=== PATIENT | male | born 1965 | race Caucasian/White ===

== ENCOUNTER 2018-11-28 15:33 | Inpatient (IN) | payer BC, OTHER ==
[~2018-11-28 15:33] MED LIST: ISOVUE-370 76%-LOCM 1 ML ONE
[2018-11-28 16:11] LABS: #Eosinphils 0.3 thou/uL (0.0-0.7); #Lymphocytes 2.4 thou/uL (1.20-3.40); #Monocytes 1.4 thou/uL (0.11-0.59); #Neutrophils 11.4 thou/uL (1.40-6.50); %Basophils 0.2 % (0.0-1.0); %Eosinophils 1.8 % (0.0-10.0); %Lymphocytes 15.2 % (21.0-51.0); %Monocytes 8.9 % (0.0-10.0); %Neutrophils 73.9 % (42.0-75.0); Hemoglobin 17.4 g/dL (14.0-18.0); Mean Corpuscular Hemoglobin 30.3 pg (27.0-31.0); Mean Corpuscular Volume 91.7 fL (78.0-98.0); Mean Platelet Volume 7.7 fL (7.4-10.4); Platelet Count 298 thou/uL (130-400); RBC Distribution Width 12.3 % (11.5-14.5); Red Blood Cell (RBC) Count 5.75 mill/uL (4.70-6.10); White Blood Cell (WBC) Count 15.4 thou/uL (4.8-10.8)
[2018-11-28 16:31] LABS: ALT (SGPT) 17 U/L (8-55); AST (SGOT) 16 U/L (5-34); Alkaline Phosphatase 77 U/L (40-150); Anion Gap 18 mmol/L (10-20); BUN (Urea Nitrogen) 11 mg/dL (8.4-25.7); Bilirubin, Total 0.8 mg/dL (0.2-1.2); Calc. Creatinine Clearance 0 mL/min (70-130); Calcium 9.7 mg/dL (7.8-10.44); Carbon Dioxide 23 mmol/L (22-29); Chloride 94 mmol/L (98-107); Estimated GFR-MDRD 74; Globulin 2.9 g/dL (2.4-3.5); Glucose 131 mg/dL (70-105); Potassium 3.9 mmol/L (3.5-5.1); Protein, Total 6.9 g/dL (6.0-8.3); Sodium 131 mmol/L (136-145)
[2018-11-28 16:40] LABS: Bilirubin Moderate (Negative); Blood, Urine Trace (Negative); Clarity CLOUDY (Clear); Glucose, Urine (Dipstick) Negative (Negative); Leukocyte Moderate (Negative); Nitrite Negative (Negative); Protein, Urine (Dipstick) 30 mg/dL (Neg-Trace); pH, Urine 5.5 (5.0-9.0)
[2018-11-28 16:46] LABS: Bacteria/HPF None Seen HPF (None Seen); Pathc Cast-AUWi Flag 2.32 (0-2.49); RBC/HPF 0-3 HPF (0-3); Squamous Epithelial None Seen HPF (0-3)
--- NOTE | 2018-11-28 16:51 | RAD ---
PORTABLE CHEST: 11/28/2018 PROVIDED CLINICAL HISTORY: Abdominal pain. FINDINGS: The cardiac and mediastinal silhouette is within normal limits. The lungs are hypoinflated but gross ly clear. No pleural fluid or pneumothorax apparent. IMPRESSION: No evidence for an acute cardiopulmonary process. POS: OFF
[2018-11-28 16:54] LABS: Hyaline Casts/LPF 4-6 HYALINE CAST LPF (0-3 Hyaline)
[2018-11-28] MEDS ORDERED: cefTRIAXone\\ROCEPHIN 2 GM VIAL ONE (17:23)
[2018-11-28] MEDS ORDERED: Morphine 4 MG/ML VIAL ONE ×2 (17:23→20:00)
[2018-11-28] MEDS ORDERED: Vancomycin HCl 1.5 GM in Sodium Chloride 0.9% 250 ML 300 ML IVPB SCH (17:45)
[2018-11-28] MEDS ORDERED: Benzocaine 20% Spray 60 ML CAN ONE ×2 (18:35→19:32)
[2018-11-28] MEDS ORDERED: Ondansetron PF 4 MG/2 ML Vial IVP PRN (19:15)
[2018-11-28] MEDS ORDERED: Dextrose 5% in Water 1,000 ML IV PRN (19:15)
[2018-11-28] MEDS ORDERED: Dextrose 50% Abboject 50 ML SYRINGE SLOW IVP PRN (19:15)
[2018-11-28] MEDS ORDERED: Morphine 4 MG/ML VIAL SLOW IVP PRN (19:15)
--- NOTE | 2018-11-28 19:22 | CT ---
CT ABDOMEN WITH CONTRAST CT PELVIS WITH CONTRAST: Date: 11/28/18 HISTORY: Diverticulitis workup. Abdominal pain, worsening. COMPARISON: None. FINDINGS: ABDOMEN CT: Subsegmental atelectasis in both lower lobes, as well as the lingula. Heart size is within normal barr its. No pericardial effusion. The descending thoracic aorta and abdominal aorta have a normal caliber . No periaortic fat stranding. There is a small amount of perihepatic fluid. The liver, spleen, and pancreas have appropriate attenu ation and enhancement. Gallbladder is unremarkable. There is prominence of both adrenal glands with a ssociated masses measuring 2.5 x 2.4 on the left and 2.6 x 2.1 on the right. Neither lesion has an at tenuation coefficient compatible with a benign adenoma. There is symmetric enhancement of the kidneys . Bilaterally, no obstructive uropathy. No gastrohepatic, retrocrural, or periportal lymphadenopathy. There is free fluid in the abdomen. There is stranding of the abdominal mesentery. The gastric mucosa is unremarkable. The duodenum and proximal small bowel loops are also unremarkable. The mid to dista l small bowel loops are moderately distended, and fluid-filled. There is mild bowel wall thickening. The ileocecal junction is identified and appears to be unremarkable. There is distention of the dista l ileum. There is a normal caliber appendix. There is diffuse dilatation of the entire colon, down to the level of the rectum. There is bowel wall thickening involving the distal descending colon, proximal and mid sigmoid colon. There appears to b e an abrupt caliber change at the level of the mid to distal sigmoid colon. The possibility of an kari lecore lesion in this region is raised. The distal sigmoid colon and rectum also have some bowel wall thickening. No evidence of adjacent free air or definite free fluid. There is mild increased vascula rity in this region. There is a hypodensity in the adjacent mesentery, measuring 1.9 x 1.8 cm. The po ssibility of a mesenteric lymph node cannot be completely excluded. CT PELVIS: No significant mass, free air, or free fluid. No evidence of lymphadenopathy along either external il iac chain. Presacral fat is maintained. No lytic or blastic lesions in the osseous structures. IMPRESSION: 1. High grade obstruction involving the colon, as well as moderate to high grade obstruction involvi ng the small bowel. The source of this obstruction appears to be at the level of the mid sigmoid colo n where there appears to be an applecore lesion. Colonoscopy is recommended. General surgical consult ation is also recommended. 2. Indeterminate left and right adrenal lesions. Results of study discussed with Dr. Stoddard on 11/28/17 at 1735 hours. CODE CR. POS: PPP
[2018-11-28] MEDS ORDERED: Ondansetron PF 4 MG/2 ML Vial ONE (20:00)
--- NOTE | 2018-11-28 20:56 | RAD ---
PORTABLE CHEST: 11/28/18 INDICATION: NG tube placement. FINDINGS: Frontal view imaging of lower one half of the chest and upper abdomen reveals enteric catheter direct ion in the lateral aspect of the left upper abdomen. There are partially imaged distended bowel loops which correspond to obstruction documented on preceding CT exam. IMPRESSION: Enteric catheter traverses the lateral aspect of the left upper quadrant. POS: LIZZETH
[2018-11-28] MEDS ORDERED: Enoxaparin Sodium 40 MG/0.4 ML SYRINGE SC SCH (21:00)
[2018-11-28] MEDS ORDERED: hydrALAZINE 20 MG/ML VIAL ONE (21:15)
[2018-11-28] MEDS: hydrALAZINE 20 MG/ML VIAL SLOW IVP PRN (21:19)
[2018-11-28] MEDS ORDERED: Enoxaparin Sodium 40 MG/0.4 ML SYRINGE ONE (21:25)
[2018-11-28] MEDS: Sodium Chloride 0.9% 1,000 ML IV SCH (21:30)
[2018-11-28] MEDS ORDERED: Morphine 2 MG/ML SYRINGE ONE ×2 (22:09→23:32)
[2018-11-28] MEDS ORDERED: Acetaminophen 1,000 MG in Premix Bag 1 BAG IVPB SCH (23:15)
[2018-11-28] MEDS ORDERED: Labetalol HCl 100 MG/20 ML VIAL SLOW IVP SCH (23:15)
[2018-11-28] MEDS ORDERED: Morphine 2 MG/ML SYRINGE SLOW IVP PRN (23:25)
[2018-11-28] MEDS: Morphine 4 MG/ML VIAL SLOW IVP PRN (23:42)
[2018-11-29] MEDS ORDERED: Morphine 4 MG/ML VIAL ONE ×3 (03:37→09:02)
[2018-11-29] MEDS: Morphine 4 MG/ML VIAL SLOW IVP PRN ×3 (03:38→09:09)
[2018-11-29 04:57] LABS: Anion Gap 20 mmol/L (10-20); BUN (Urea Nitrogen) 14 mg/dL (8.4-25.7); Calc. Creatinine Clearance 0 mL/min (70-130); Calcium 8.5 mg/dL (7.8-10.44); Carbon Dioxide 16 mmol/L (22-29); Chloride 101 mmol/L (98-107); Estimated GFR-MDRD Greater than 90; Glucose 162 mg/dL (70-105); Potassium 3.7 mmol/L (3.5-5.1); Sodium 133 mmol/L (136-145)
[2018-11-29] MEDS ORDERED: Ondansetron PF 4 MG/2 ML Vial ONE ×2 (05:44→10:18)
[2018-11-29] MEDS: hydrALAZINE 20 MG/ML VIAL SLOW IVP PRN (05:47)
[2018-11-29] MEDS: Sodium Chloride 0.9% 1,000 ML IV SCH ×2 (05:50→20:56)
[2018-11-29 06:40] LABS: Band 16 % (5-11); Lymphocytes 12 % (21-51); MDiff Complete? YES; Mean Corpuscular HGB CONC 33.2 g/dL (32.0-36.0); Mean Corpuscular Hemoglobin 30.5 pg (27.0-31.0); Mean Corpuscular Volume 91.9 fL (78.0-98.0); Mean Platelet Volume 7.4 fL (7.4-10.4); Monocytes 16 % (0-10); Neutrophil 14 % (42-75); Platelet Count 260 thou/uL (130-400); Platelet Morphology Comment Appears Adequate; RBC Distribution Width 12.5 % (11.5-14.5); Reactive Lymphocytes 40 % (0-10); Red Blood Cell (RBC) Count 5.56 mill/uL (4.70-6.10); Vacuoles SLIGHT; White Blood Cell (WBC) Count 2.3 thou/uL (4.8-10.8)
[2018-11-29] MEDS ORDERED: Labetalol HCl 100 MG/20 ML VIAL SLOW IVP PRN (09:24)
[2018-11-29 10:01] VITALS: BMI 33.9
[2018-11-29] MEDS ORDERED: Dexamethasone 20 MG/5 ML VIAL ONE (10:18)
[2018-11-29] MEDS ORDERED: Ketorolac Tromethamine 30 MG/ML VIAL ONE (10:18)
[2018-11-29] MEDS ORDERED: PROPOFOL 200 MG/20 ML VIAL ONE (10:18)
[2018-11-29] MEDS ORDERED: Rocuronium Bromide 10 MG/ML (10ML VIAL) ONE (10:18)
[2018-11-29] MEDS ORDERED: Midazolam HCl 2 mg/2 ml Vial ONE (11:28)
[2018-11-29] MEDS ORDERED: Bupivacaine HCl 0.5%/Epinephrine 1:200,000/PF 30 ml Vial ONE (11:30)
--- NOTE | 2018-11-29 12:06 | HP ---
ADMISSION DIAGNOSIS: Abdominal pain with colon distention. HISTORY OF PRESENT ILLNESS: The patient is a 53-year-old white male. He gives a 3-week history of progressive abdominal pain. He has noted loose bowel movements recently. He saw his primary care physician for this last week, who felt he may have diverticulitis and placed him on oral antibiotics. He noted his abdomen became progressively more distended with severe pain and he presented to the emergency room last night on November 28. CT scan was obtained revealing findings consistent with a distal colon obstruction at the rectosigmoid junction. There was massive dilatation of the colon proximally. PAST MEDICAL HISTORY: Significant for hypertension. CURRENT MEDICATIONS: Metoprolol. ALLERGIES: NO KNOWN DRUG ALLERGIES. PERSONAL AND SOCIAL HISTORY: He smokes about one cigar per day. He drinks alcohol occasionally. He is with one son. REVIEW OF SYSTEMS: Otherwise unremarkable. FAMILY HISTORY: Noncontributory. PHYSICAL EXAMINATION: VITAL SIGNS: He is afebrile, but he is tachycardic with a heart rate between 120 and 130. Blood pressure is elevated at 180/100. GENERAL: He is a well-developed, moderately obese white male in obvious discomfort. He is alert and oriented x3, and family is present at bedside. HEAD, EYES, EARS, NOSE, AND THROAT: Unremarkable. NECK: Supple without mass or tenderness. LUNGS: Clear to auscultation throughout. CARDIAC: Regular rate and rhythm. ABDOMEN: Distended. There are hypoactive bowel sounds. RECTAL: Reveals no definite palpable mass. EXTREMITIES: Unremarkable. LABORATORY DATA: White blood cell count is elevated at 15, hemoglobin 17. Electrolytes are unremarkable. CEA is normal at 2.3. ASSESSMENT: The patient with distal colon obstruction and colon dilatation. PLAN: Urgent laparotomy with colon resection and colostomy. He will not be a candidate for reanastomosis secondary to distention of his colon. I have discussed this in detail with the patient's family. They understand and agreed to proceed with surgery at this time. Job ID: [id number]
[2018-11-29] MEDS ORDERED: ceFOXitin 1 GM VIAL ONE ×2 (12:24→14:31)
[2018-11-29] MEDS ORDERED: Promethazine HCl 25 MG/ML VIAL IM PRN ×3 (12:30→18:03)
[2018-11-29] MEDS ORDERED: Hydrocerin (Eucerin) Cream 120 gm Jar TOP PRN (12:30)
[2018-11-29] MEDS ORDERED: Naloxone HCl 0.4 mg/ml Vial IV PRN (12:30)
[2018-11-29] MEDS ORDERED: Bupivacaine 0.25% 10 ML VIAL EPIDURAL PRN (12:30)
[2018-11-29] MEDS ORDERED: Zolpidem Tartrate 5 MG TAB PO PRN (12:30)
[2018-11-29] MEDS ORDERED: Promethazine HCl 25 MG SUPP PR PRN (12:30)
[2018-11-29] MEDS ORDERED: Naloxone HCl 0.4 mg/ml Vial IVP PRN (12:30)
[2018-11-29] MEDS ORDERED: traMADol HCl 50 MG TAB PO PRN ×2 (12:30)
[2018-11-29] MEDS ORDERED: diphenhydrAMINE 50 MG/ML VIAL IM PRN (12:30)
[2018-11-29] MEDS ORDERED: HYDROcodone/Acetaminophen 5/325 mg Tablet PO PRN (12:30)
[2018-11-29] MEDS ORDERED: diphenhydrAMINE 25 MG CAP PO PRN (12:30)
[2018-11-29] MEDS ORDERED: diphenhydrAMINE 50 MG/ML VIAL IVP PRN (12:30)
[2018-11-29] MEDS ORDERED: Ondansetron PF 4 MG/2 ML Vial IVP PRN ×2 (12:30→18:03)
[2018-11-29] MEDS ORDERED: Albumin 5% 500 ML ONE ×2 (13:14→14:49)
[2018-11-29] MEDS ORDERED: Ondansetron HCl/PF 4 MG/2 ML Vial IVP PRN (16:06)
[2018-11-29] MEDS ORDERED: Meperidine HCl/PF 25 MG/ML VIAL SLOW IVP PRN (16:06)
[2018-11-29] MEDS ORDERED: Promethazine HCl 25 MG/ML VIAL SLOW IVP PRN (16:06)
[2018-11-29] MEDS ORDERED: Fentanyl/Bupivacaine 100 ML EPIDURAL ONE (16:11)
[2018-11-29] MEDS ORDERED: Fentanyl 100 MCG/2 ML VIAL ONE (16:43)
[2018-11-29] MEDS ORDERED: Ketorolac Tromethamine 30 MG/ML VIAL IVP SCH (18:00)
[2018-11-29 18:03] LABS: Hemoglobin 14.2 g/dL (14.0-18.0); Mean Corpuscular HGB CONC 31.8 g/dL (32.0-36.0); Mean Corpuscular Hemoglobin 30.4 pg (27.0-31.0); Mean Corpuscular Volume 95.5 fL (78.0-98.0); Mean Platelet Volume 7.6 fL (7.4-10.4); Platelet Count 244 thou/uL (130-400); RBC Distribution Width 12.6 % (11.5-14.5); Red Blood Cell (RBC) Count 4.69 mill/uL (4.70-6.10); White Blood Cell (WBC) Count 4.6 thou/uL (4.8-10.8)
[2018-11-29 18:15] LABS: Anion Gap 18 mmol/L (10-20); BUN (Urea Nitrogen) 17 mg/dL (8.4-25.7); Calc. Creatinine Clearance 132 mL/min (70-130); Carbon Dioxide 19 mmol/L (22-29); Chloride 102 mmol/L (98-107); Estimated GFR-MDRD 74; Glucose 159 mg/dL (70-105); Potassium 4.1 mmol/L (3.5-5.1); Sodium 135 mmol/L (136-145)
[2018-11-29 18:18] LABS: Band 34 % (5-11); Eosinophils 1 % (0-10); Lymphocytes 17 % (21-51); MDiff Complete? YES; Metamyelocyte 5 % (0-0); Monocytes 12 % (0-10); Myelocyte 1 % (0-0); Neutrophil 25 % (42-75); Platelet Morphology Comment Appears Adequate; RBC Morphology Normal; Reactive Lymphocytes 5 % (0-10)
[2018-11-29] MEDS ORDERED: Sodium Chloride 0.9% 1,000 ML IV SCH (18:30)
[2018-11-29] MEDS ORDERED: Acetaminophen 1,000 MG in Premix Bag 1 BAG IVPB SCH (18:45)
[2018-11-29] MEDS: Piperacillin/Tazobactam 3.375 GM in Sodium Chloride 0.9% 100 ML IVPB SCH (20:33)
[2018-11-29] MEDS: Famotidine/PF 20 mg/2ml Vial SLOW IVP SCH (20:34)
[2018-11-29] MEDS: Enoxaparin Sodium 40 MG/0.4 ML SYRINGE SC SCH (20:35)
[2018-11-29] MEDS: Famotidine 20 MG TAB PO SCH (21:33)
[2018-11-29] MEDS: Ketorolac Tromethamine 30 MG/ML VIAL IVP SCH (23:55)
[2018-11-29] MEDS: Acetaminophen 1,000 MG in Premix Bag 1 BAG IVPB SCH (23:55)
[2018-11-30] MEDS: Piperacillin/Tazobactam 3.375 GM in Sodium Chloride 0.9% 100 ML IVPB SCH ×4 (02:40→20:58)
[2018-11-30] MEDS: Fentanyl/Bupivacaine 100 ML EPIDURAL SCH ×2 (02:46→14:01)
[2018-11-30 04:29] LABS: Mean Corpuscular HGB CONC 31.9 g/dL (32.0-36.0); Mean Corpuscular Hemoglobin 30.3 pg (27.0-31.0); Mean Corpuscular Volume 94.9 fL (78.0-98.0); Mean Platelet Volume 7.5 fL (7.4-10.4); Platelet Count 222 thou/uL (130-400); RBC Distribution Width 12.5 % (11.5-14.5); White Blood Cell (WBC) Count 5.7 thou/uL (4.8-10.8)
[2018-11-30 04:46] LABS: Anion Gap 13 mmol/L (10-20); BUN (Urea Nitrogen) 17 mg/dL (8.4-25.7); Calc. Creatinine Clearance 163 mL/min (70-130); Calcium 8.2 mg/dL (7.8-10.44); Carbon Dioxide 21 mmol/L (22-29); Chloride 105 mmol/L (98-107); Estimated GFR-MDRD Greater than 90; Glucose 131 mg/dL (70-105); Potassium 3.9 mmol/L (3.5-5.1); Sodium 135 mmol/L (136-145)
[2018-11-30 04:53] LABS: Band 26 % (5-11); Hypochromia SLIGHT = 6-15 cells (100X) (0-5/hpf); Lymphocytes 18 % (21-51); MDiff Complete? YES; Metamyelocyte 4 % (0-0); Monocytes 28 % (0-10); Neutrophil 8 % (42-75); Platelet Morphology Comment Appears Adequate; Reactive Lymphocytes 16 % (0-10)
[2018-11-30] MEDS: Sodium Chloride 0.9% 1,000 ML IV SCH ×3 (05:30→18:02)
[2018-11-30] MEDS: Ketorolac Tromethamine 30 MG/ML VIAL IVP SCH ×4 (06:05→23:23)
[2018-11-30] MEDS: Acetaminophen 1,000 MG in Premix Bag 1 BAG IVPB SCH ×2 (06:05→11:30)
[2018-11-30] MEDS: Famotidine 20 MG TAB PO SCH ×2 (08:29→21:00)
[2018-11-30] MEDS: Famotidine/PF 20 mg/2ml Vial SLOW IVP SCH ×2 (08:30→21:00)
[2018-11-30] MEDS ORDERED: Enoxaparin Sodium 40 MG/0.4 ML SYRINGE SC SCH (09:00)
--- NOTE | 2018-11-30 09:36 | PRG ---
DATE OF SERVICE: 11/30/2018 SUBJECTIVE: Mr. Parsons is postoperative day #1 from an open Gianna procedure. He has been in the intensive care unit secondary to tachycardia and hypertension yesterday. He has been stable overnight. He has an epidural in place and notes that he generally feels pretty well with this in place. OBJECTIVE: GENERAL: He is alert and oriented x3 and has no complaints. He tells me he feels much better than he did before surgery. VITAL SIGNS: On examination, he is afebrile. Pulse is about 100 and blood pressure is 150/100, oxygen saturation is 99% on room air. Urine output overnight was 757 mL. He apparently had about a liter out of his colostomy this morning. LUNGS: Clear to auscultation. ABDOMEN: Significantly less distended. Dressings are intact. Ostomy appears viable. There are no bowel sounds audible. EXTREMITIES: He notes that he has left leg weakness that is believed to be associated with his epidural. LABORATORY DATA: His basic met panel is unremarkable. The sodium is a little bit low at and CO2 is a little low at . His creatinine has dropped from 1.0 down to 0.86. His CBC reveals white blood cell count of 5.7. His hemoglobin is 13, hematocrit 40.9, and platelet count is 222. He has an abnormal differential with 8 neutrophils, 26 bands, 8 lymphocytes, and 28% monocytes. It is noted that his CBC from yesterday morning had a low white blood cell count of 2.3. I am not certain what is causing this from a hematologic standpoint. ASSESSMENT: The patient is stable one day after his colon resection for rectosigmoid obstruction. It was uncertain exactly what the diagnosis was at the time of his surgery. It did not appear typical of malignancy nor a typical of diverticulitis. He will be transferred to the floor. Epidural will be continued. Nasogastric tube will be continued, and Alvarado will be continued until tomorrow. Job ID: [id number]
[2018-11-30] MEDS: hydrALAZINE 20 MG/ML VIAL SLOW IVP PRN (10:00)
--- NOTE | 2018-11-30 10:36 | CON ---
DATE OF CONSULTATION: 11/30/2018 CONSULTING PHYSICIAN: Chase Ge MD REASON FOR CONSULTATION: ICU management. HISTORY OF PRESENT ILLNESS: A 53-year-old male who was placed in the ICU post laparotomy for colon obstruction yesterday. He was having problems with hypoxemia and elevated heart rate that has since resolved and he has been weaned down to 2 L. At the current time, he has no complaints except for leg numbness from the epidural. PAST MEDICAL HISTORY: Hypertension. PAST SURGICAL HISTORY: None prior to yesterday. MEDICATIONS: Prior to admission, metoprolol. SOCIAL HISTORY: He smokes about 1 cigar per day. He occasionally drinks alcohol. He manages a bar. FAMILY MEDICAL HISTORY: Unremarkable. REVIEW OF SYSTEMS: A 12-point review of systems is otherwise negative. PHYSICAL EXAMINATION: VITAL SIGNS: Temperature 97.6, pulse 96, blood pressure 138/83, O2 saturation 99%, 24-hour intake 2376, output 1757. HEENT: Pupils are reactive. Sclerae are anicteric. Oropharynx clear. NECK: No adenopathy, JVD, or bruits. LUNGS: Clear without wheezing or rhonchi. CARDIAC: S1 and S2. Slightly tachycardic. No murmur, rub, or gallop. ABDOMEN: Colostomy noted on left side, midline surgical wound appears to be healing well. EXTREMITIES: No clubbing, cyanosis, or edema. LABORATORY DATA: White blood cell count 5.7, hematocrit 40.9, and platelet count 222. Sodium 135, potassium 3.9, chloride 105, CO2 of 21, BUN 17, creatinine 0.8, and glucose 131. A chest x-ray from the time of admission confirms the colonic distention. Lung chisholm were otherwise clear. ASSESSMENT: 1. Transient hypoxemia, post laparotomy-this is resolved. 2. Systemic inflammatory response-resolved. PLAN: I anticipate this patient moving up to the surgical floor later today. He is continuing on antibiotics. He is on Pepcid for GI prophylaxis and enoxaparin for DVT prophylaxis. No pulmonary critical care needs are identified at this time. We will follow peripherally. Job ID: [id number]
[2018-11-30] MEDS ORDERED: Metoprolol Tartrate 100 MG TAB PER TUBE SCH (12:15)
[2018-11-30] MEDS: HYDROcodone/Acetaminophen 5/325 mg Tablet PO PRN (15:27)
[2018-11-30] MEDS ORDERED: Chloraseptic Spray 180 ml Bottle PO PRN (17:43)
[2018-11-30] MEDS: Metoprolol Tartrate 100 MG TAB PO SCH (21:00)
[2018-11-30] MEDS: Enoxaparin Sodium 40 MG/0.4 ML SYRINGE SC SCH (21:00)
--- NOTE | 2018-11-30 22:53 | OP ---
DATE OF PROCEDURE: 11/29/2018 PREOPERATIVE DIAGNOSIS: Distal colonic obstruction at the rectosigmoid junction. POSTOPERATIVE DIAGNOSES: 1. Distal colonic obstruction at the rectosigmoid junction. 2. Extensive small bowel and colonic distention. OPERATIONS PERFORMED: 1. Exploratory laparotomy. 2. Open small bowel decompression. 3. Open colonic decompression. 4. Sigmoid colectomy with stapled rectal stump. 5. Colostomy creation. ANESTHESIA: General endotracheal. INDICATIONS: The patient is an obese 53-year-old white male. He presents with substantial abdominal distention and pain. CT scan demonstrates what appears to be an apple-core type lesion at about the rectosigmoid junction with massive distention of the colon leading up to this area. He was taken to the operating this time for open exploration and resection with planned colostomy. DESCRIPTION OF OPERATION: Informed consent was obtained, patient taken to the operating room where general endotracheal anesthesia obtained. The patient in supine position. Abdomen was prepped with ChloraPrep and draped in sterile fashion. A midline incision was created and dissection was carried through the fascia into the abdominal cavity. The patient had some fluid within the abdomen. There is no foul smell. No evidence of enteric leak. The bowel immediately eviscerated through the incision as it seemed to be under pressure. There was extraordinary distention of both the small bowel and the colon. It was difficult to palpate the stomach, because of the massive distention of the transverse colon. I was however able to confirm that the nasogastric tube was in the correct location. I initially attempted to gain some space to work within the abdomen by milking the small bowel retrograde into the stomach, but the distention of the transverse colon made this essentially impossible. I therefore decided to decompress the small bowel with an enterotomy. In a segment of the mid small bowel that was massively distended, I placed a pursestring suture of 2-0 silk and created an enterotomy. I used the Melendez suction device to aspirate all contents from within the small bowel. There was between 1.5 in 2 L of contents that were aspirated. The suction device was removed and the enterotomy was closed and was inverted using a series of serosal sutures of 3-0 silk. There was still massive distention of all segments of the colon. The right colon was difficult to visualize, but I palpated it throughout and did visualize the cecum, this appeared to be viable. There was a section of the mid transverse colon just little to the distal aspect of the middle colic vessels that had an ischemic appearance. I decided to attempt to decompress the bowel through this area. There was about a 1 cm ischemic area. I placed a pursestring suture of 2-0 silk circumferentially around this. I created a colotomy through, which I advanced the Melendez suction device. Although a substantial amount of air and liquid stool were aspirated, the solid material made it impractical to attempt to decompress a substantial volume of the of colon. Therefore, after I had aspirated several 100 mL and decompressed the mid segment of the transverse colon, the Melendez suction device was removed, the colotomy was closed and the area was inverted using a series of interrupted sutures of 3-0 silk. The Bookwalter retraction device was then assembled to give access to the left lower quadrant. I was able to palpate the area of the obstruction in the distal sigmoid colon and upper rectum. I began to mobilize the colon. I took down the white line of Toldt to the left colon. For later colostomy purposes, I mobilized the splenic flexure and in doing so, caused a small injury to the inferior tip of the spleen that was controlled with Joe. Due to the massive distention, all visualization was quite difficult. The dissection was then carried down into the pelvis. Unfortunately, there was substantial adhesion between the distal sigmoid colon and upper rectum and the left lateral pelvic wall and even some of the anterior aspect in the area of anticipated to be the bladder. I had to carefully attempt to dissect all this off the colon. This was a arduous task that took quite a while. Eventually, I was able to dissect down below the area of the induration to the area of rectum that appeared to be uninvolved. At this level, I created a mesenteric window and divided the rectum with a single fire of the contour stapler. I then turned my attention to the sigmoid colon proximal to the area of the obstruction. A mesenteric window was created here and the colon was divided using 2 fires of the IGNACIO 75 stapler. The intervening mesentery was taken down using the Impact LigaSure device. The left ureter was identified and kept free from harm throughout. The specimen was passed off the field. The abdominal cavity was then irrigated with 5 L of saline and all irrigant was aspirated. There had been some spillage of stool during the decompression of the colon. The sigmoid colon was mobilized to the extent possible to allow colostomy maturation. The colostomy opening was created in the left abdominal wall in the routine fashion. The opening was bigger than typical because of the enormous size of the colon. The omentum was pulled down over the Operative site. The rectal stump was tagged with two sutures of 2-0 Prolene. Two sheets of Seprafilm were placed under the fascia. The fascia was closed with a running suture of looped #1 PDS. The gown and gloves were changed. The wound was copiously irrigated using a Pulsavac device. The patient was obese and had a thick layer of subcutaneous fat. The edges were approximated by placing a series of interrupted sutures of 3-0 Vicryl. Skin edges were then loosely approximated with skin sonja. Telfa gauze puja were placed in the gaps between the sonja and the wound was then covered well. Attention was turned to the colostomy. The stapled end of the colon had been pulled through the colostomy opening prior to closing the abdomen. There was about an inch and a half of it that ischemic obviously. This was excised and a large volume of gas and stool was expelled through this segment of the colon. It was matured in the usual fashion using four quadrant eversion sutures of 3-0 Vicryl followed by a series of full-thickness interrupted sutures of 3-0 Vicryl. Colostomy appliance was obtained, trimmed to appropriate size and placed over the colostomy. Before the colostomy bag was placed, the opening was digitally inspected, found to be widely patent. A Melendez suction device was passed up within the colostomy opening the end and a large volume of gas and liquid stool was aspirated. The midline incision was covered with gauze dressing. At the end of the procedure, the patient appeared to be stable. His tachycardia from the beginning of the operation had resolved somewhat. His heart rate had dropped from the 130s down to the 110s. Blood pressure was stable. He was extubated, taken to recovery room in relatively stable condition with plans to admit him to the Intensive Care Unit for observation overnight. He had been given a large volume of fluid during the operation with at least 4 L of crystalloid and another L of colloid using albumin. Job ID: [id number]
[2018-12-01] MEDS: Piperacillin/Tazobactam 3.375 GM in Sodium Chloride 0.9% 100 ML IVPB SCH ×4 (02:24→20:19)
[2018-12-01] MEDS: Sodium Chloride 0.9% 1,000 ML IV SCH ×2 (06:03→15:40)
[2018-12-01] MEDS: Ketorolac Tromethamine 30 MG/ML VIAL IVP SCH ×4 (06:03→23:51)
[2018-12-01 07:05] LABS: Hemoglobin 12.6 g/dL (14.0-18.0); Mean Corpuscular HGB CONC 31.8 g/dL (32.0-36.0); Mean Corpuscular Hemoglobin 30.6 pg (27.0-31.0); Mean Corpuscular Volume 96.1 fL (78.0-98.0); Mean Platelet Volume 7.7 fL (7.4-10.4); Platelet Count 243 thou/uL (130-400); RBC Distribution Width 12.8 % (11.5-14.5); Red Blood Cell (RBC) Count 4.14 mill/uL (4.70-6.10); White Blood Cell (WBC) Count 7.8 thou/uL (4.8-10.8)
[2018-12-01 07:19] LABS: Anion Gap 12 mmol/L (10-20); BUN (Urea Nitrogen) 17 mg/dL (8.4-25.7); Calc. Creatinine Clearance 177 mL/min (70-130); Calcium 8.2 mg/dL (7.8-10.44); Carbon Dioxide 22 mmol/L (22-29); Chloride 107 mmol/L (98-107); Estimated GFR-MDRD Greater than 90; Glucose 69 mg/dL (70-105); Potassium 3.3 mmol/L (3.5-5.1); Sodium 138 mmol/L (136-145)
[2018-12-01 08:19] LABS: Band 21 % (5-11); Burr Cells MODERATE= 6-15 cells (100X) (0-1/hpf); Lymphocytes 20 % (21-51); MDiff Complete? YES; Metamyelocyte 2 % (0-0); Monocytes 6 % (0-10); Neutrophil 51 % (42-75); Platelet Morphology Comment Appears Adequate
[2018-12-01] MEDS: D5 1/2 NS w/20 mEq KCL 1,000 ML IV SCH ×2 (08:54→17:36)
[2018-12-01] MEDS: Metoprolol Tartrate 100 MG TAB PO SCH ×2 (08:54→20:19)
[2018-12-01] MEDS: Famotidine/PF 20 mg/2ml Vial SLOW IVP SCH ×2 (08:54→20:19)
--- NOTE | 2018-12-01 08:56 | PRG ---
DATE OF SERVICE: 12/01/2018 SUBJECTIVE: Mr. Parsons is postoperative day #2 from his laparotomy, bowel decompression, and Gianna's procedure. He had an obstructing lesion at the rectosigmoid junction, for which pathology is still pending. He was transferred to the surgical floor yesterday. He tells me he has been doing well and feels much much better. He has an epidural catheter in place and it is functioning quite well as he denies any significant pain. He tells me he ambulated for quite a while yesterday. His leg weakness that he was experiencing yesterday has resolved. He has taken quite a few ice chips and accordingly has significant nasogastric output. He has also had a fairly high colostomy output. OBJECTIVE: VITAL SIGNS: He is afebrile. His pulse is between 89 and 101, blood pressure is 159/100. LUNGS: Clear to auscultation. ABDOMEN: Minimally tender. He does have some early bowel sounds. Dressing is intact on his midline incision and Telfa puja are still in place. Ostomy in the left abdomen is viable with an ostomy appliance in place. LABORATORY DATA: His basic metabolic panel shows that his sodium and chloride are normal. His potassium is a little low at 3.3, BUN and creatinine are normal. Glucose is a little bit low at 69. CBC shows his white blood cell count is normalized at 7.8. His differential appears more appropriate with 51 neutrophils and 21% bands. His hemoglobin is stable at 12.6. ASSESSMENT: The patient seems to be doing well following his surgery for his colon obstruction. His ileus seems to be resolving. He notes that he had substantial discomfort with placement of the nasogastric tube in and accordingly I will err on the side of leaving this in one day too long. I would anticipate that it should be fine to be removed tomorrow. He can continue to have ice chips in the interim. I will arrange ostomy training with ostomy nurses and obtain a home health consult for ostomy help for when he is discharged. Hopefully, he will be able to have his nasogastric tube removed tomorrow and then advance his diet and if he progresses appropriately, hopefully home sometime early to mid next week. Job ID: [id number]
[2018-12-01] MEDS: Fentanyl/Bupivacaine 100 ML EPIDURAL SCH (10:35)
[2018-12-01] MEDS: Famotidine 20 MG TAB PO SCH ×2 (10:42→20:19)
[2018-12-01] MEDS: Enoxaparin Sodium 40 MG/0.4 ML SYRINGE SC SCH (20:19)
[2018-12-01] MEDS ORDERED: Enoxaparin Sodium 40 MG/0.4 ML SYRINGE SC SCH (21:00)
[2018-12-02] MEDS: D5 1/2 NS w/20 mEq KCL 1,000 ML IV SCH ×4 (01:56→23:08)
[2018-12-02] MEDS: Piperacillin/Tazobactam 3.375 GM in Sodium Chloride 0.9% 100 ML IVPB SCH ×4 (01:57→20:08)
[2018-12-02] MEDS: Fentanyl/Bupivacaine 100 ML EPIDURAL SCH ×2 (03:25→18:43)
[2018-12-02] MEDS: Ketorolac Tromethamine 30 MG/ML VIAL IVP SCH ×4 (05:56→23:08)
[2018-12-02 07:20] LABS: #Eosinphils 0.2 thou/uL (0.0-0.7); #Lymphocytes 1.2 thou/uL (1.20-3.40); #Monocytes 0.7 thou/uL (0.11-0.59); #Neutrophils 5.6 thou/uL (1.40-6.50); %Basophils 0.2 % (0.0-1.0); %Eosinophils 2.6 % (0.0-10.0); %Lymphocytes 15.7 % (21.0-51.0); %Monocytes 8.7 % (0.0-10.0); %Neutrophils 72.9 % (42.0-75.0); Mean Corpuscular HGB CONC 31.7 g/dL (32.0-36.0); Mean Corpuscular Hemoglobin 30.5 pg (27.0-31.0); Mean Corpuscular Volume 96.3 fL (78.0-98.0); Mean Platelet Volume 7.4 fL (7.4-10.4); Platelet Count 246 thou/uL (130-400); Red Blood Cell (RBC) Count 3.94 mill/uL (4.70-6.10); White Blood Cell (WBC) Count 7.6 thou/uL (4.8-10.8)
[2018-12-02 07:38] LABS: Anion Gap 11 mmol/L (10-20); BUN (Urea Nitrogen) 14 mg/dL (8.4-25.7); Calc. Creatinine Clearance 184 mL/min (70-130); Carbon Dioxide 23 mmol/L (22-29); Chloride 107 mmol/L (98-107); Estimated GFR-MDRD Greater than 90; Glucose 90 mg/dL (70-105); Sodium 138 mmol/L (136-145)
[2018-12-02] MEDS: Famotidine 20 MG TAB PO SCH ×2 (09:08→20:09)
[2018-12-02] MEDS: Metoprolol Tartrate 100 MG TAB PO SCH ×2 (09:08→20:08)
[2018-12-02] MEDS: Famotidine/PF 20 mg/2ml Vial SLOW IVP SCH ×2 (09:08→20:09)
--- NOTE | 2018-12-02 10:43 | PRG ---
DATE OF SERVICE: 12/02/2018 SUBJECTIVE: The patient says he is feeling a lot better. He denies any nausea. His NG tube has been clamped for multiple hours. His ostomy is working well. He is hungry and thirsty. OBJECTIVE: VITAL SIGNS: Temperature 97.7, pulse 76, blood pressure 182/91. GENERAL: He is awake, alert. ABDOMEN: Soft, nondistended. The ostomy has a lot of output coming through. ASSESSMENT: Doing well. PLAN: Discontinue NG tube. Begin clear liquid diet. Job ID: [id number]
[2018-12-02] MEDS: hydrALAZINE 20 MG/ML VIAL SLOW IVP PRN (13:35)
[2018-12-02] MEDS: Enoxaparin Sodium 40 MG/0.4 ML SYRINGE SC SCH (20:09)
[2018-12-03] MEDS: Piperacillin/Tazobactam 3.375 GM in Sodium Chloride 0.9% 100 ML IVPB SCH ×4 (01:02→21:07)
[2018-12-03] MEDS: Famotidine 20 MG TAB PO SCH ×2 (08:32→21:06)
[2018-12-03] MEDS: Famotidine/PF 20 mg/2ml Vial SLOW IVP SCH ×2 (08:33→21:07)
[2018-12-03] MEDS: Metoprolol Tartrate 100 MG TAB PO SCH ×2 (08:33→21:06)
--- NOTE | 2018-12-03 09:15 | PRG ---
DATE OF SERVICE: 12/03/2018 SUBJECTIVE: The patient reports feeling a lot better today. Minimal pain. No nausea. He is tolerating clear liquids well. He is hungry. Ostomy is working well. OBJECTIVE: VITAL SIGNS: On examination, temperature 97.8, pulse 84, and blood pressure 168/89. ABDOMEN: Soft and nondistended. The ostomy is healthy, working well. ASSESSMENT: The patient still has his epidural and Alvarado. PLAN: Plan is to advance his diet, having Anesthesia remove the epidural and remove the Alvarado. Continue ambulation. Job ID: [id number]
[2018-12-03] MEDS: D5 1/2 NS w/20 mEq KCL 1,000 ML IV SCH ×2 (09:26→21:07)
[2018-12-03] MEDS: HYDROcodone/Acetaminophen 5/325 mg Tablet PO PRN ×2 (15:53→21:06)
[2018-12-03] MEDS: hydrALAZINE 20 MG/ML VIAL SLOW IVP PRN ×2 (15:56→21:06)
[2018-12-03] MEDS: Enoxaparin Sodium 40 MG/0.4 ML SYRINGE SC SCH (21:07)
[2018-12-04] MEDS: Piperacillin/Tazobactam 3.375 GM in Sodium Chloride 0.9% 100 ML IVPB SCH ×4 (01:20→19:42)
[2018-12-04] MEDS: hydrALAZINE 20 MG/ML VIAL SLOW IVP PRN ×2 (03:44→20:54)
[2018-12-04] MEDS: HYDROcodone/Acetaminophen 5/325 mg Tablet PO PRN ×2 (03:44→18:45)
[2018-12-04] MEDS: D5 1/2 NS w/20 mEq KCL 1,000 ML IV SCH ×3 (04:35→19:41)
[2018-12-04] MEDS: Metoprolol Tartrate 100 MG TAB PO SCH ×2 (08:36→19:42)
[2018-12-04] MEDS: Famotidine/PF 20 mg/2ml Vial SLOW IVP SCH ×2 (08:36→20:50)
[2018-12-04] MEDS: Famotidine 20 MG TAB PO SCH ×2 (08:37→19:42)
[2018-12-04] MEDS ORDERED: METOPROLOL TARTRATE 100 MG PO SCH (09:00)
--- NOTE | 2018-12-04 10:05 | PDOC.GSPN ---
Surgery Progress Note: Subj - Subjective Narrative: Doing well overall. Tolerating liquid diet and colostomy has stool output. He has occasional nausea after taking his medications but is otherwise doing well. Incisions look good. Deny were removed today. Colostomy is healthy with soft stool in the bag. Doing well status post Quintana's procedure with return of bowel function. I'm going to advance his diet. Pathology is still pending. He will likely be ready for discharge by tomorrow. Surgery Progress Note: Obj - Vital signs Vital signs: Vital Signs - Most Recent Temp Pulse Resp BP Pulse Ox 97.6 F 85 20 166/92 H 96 12/04/18 07:26 12/04/18 07:26 12/04/18 07:26 12/04/18 07:26 12/04/18 07:26 Surgery Progress Note: Results - Labs Result Diagrams: 12/02/18 07:02 12/02/18 07:02
[2018-12-04] MEDS ORDERED: Metoprolol Tartrate 100 MG TAB PO SCH (10:15)
[2018-12-04] MEDS: Enoxaparin Sodium 40 MG/0.4 ML SYRINGE SC SCH (19:41)
[2018-12-05] MEDS: Piperacillin/Tazobactam 3.375 GM in Sodium Chloride 0.9% 100 ML IVPB SCH ×3 (01:42→15:34)
[2018-12-05] MEDS: HYDROcodone/Acetaminophen 5/325 mg Tablet PO PRN ×3 (01:45→16:46)
[2018-12-05] MEDS: D5 1/2 NS w/20 mEq KCL 1,000 ML IV SCH ×2 (05:27→15:34)
[2018-12-05] MEDS: Famotidine/PF 20 mg/2ml Vial SLOW IVP SCH (07:52)
[2018-12-05] MEDS: Famotidine 20 MG TAB PO SCH (08:05)
[2018-12-05] MEDS: Metoprolol Tartrate 100 MG TAB PO SCH (08:05)
[2018-12-05 11:29] VITALS: TEMP 98.3
[2018-12-05 15:36] VITALS: BP 190/97
[2018-12-05] MEDS ORDERED: Amoxicillin/Potassium Clav 875 MG TAB PO SCH ×2 (17:00→21:00)
[2018-12-05] MEDS ORDERED: metroNIDAZOLE 500 MG TAB PO SCH ×2 (17:00→21:00)
--- NOTE | 2018-12-09 15:11 | EKG ---
Test Reason : Blood Pressure : / mmHG Vent. Rate : 118 BPM Atrial Rate : 118 BPM P-R Int : 150 ms QRS Dur : 110 ms QT Int : 344 ms P-R-T Axes : 032 -22 028 degrees QTc Int : 482 ms Sinus tachycardia Inferior infarct , age undetermined Anterior infarct , age undetermined Abnormal ECG Confirmed by MANJIT SHELL, LALI Downey ([id number]), legal editor ANDREW POTTS ([id number]) on 12/09/2018 3:11:32 PM Referred By: Confirmed By:LALI SARAVIA MD
== END 2018-12-05 18:45 | disposition home or self-care (01) | DRG 330 ==
LOC: ERS 15:33 → ERHOLD 19:24 → SURG A 11-29 12:02 → CCU 11-29 16:57 → SURG B 11-30 13:34
PROVIDERS: ADMIT Specialist; ATTEND Specialist
PROC: 0DBN0ZZ Excision of Sigmoid Colon, Open Approach (ICD-10-PCS; principal; 2018-11-29)
PROC: 0D1N0Z4 Bypass Sigmoid Colon to Cutaneous, Open Approach (ICD-10-PCS; 2018-11-29)
PROC: 0D9B0ZZ Drainage of Ileum, Open Approach (ICD-10-PCS; 2018-11-29)
PROC: 0D9L0ZZ Drainage of Transverse Colon, Open Approach (ICD-10-PCS; 2018-11-29)
DX: K56.699 Other intestinal obstruction unspecified as to partial versus complete obstruction (principal); R65.10 Systemic inflammatory response syndrome (SIRS) of non-infectious origin without acute organ dysfunction; N39.0 Urinary tract infection, site not specified; I10 Essential (primary) hypertension; R09.02 Hypoxemia; Z72.0 Tobacco use; Z79.899 Other long term (current) drug therapy; E66.9 Obesity, unspecified; Z68.33 Body mass index [BMI] 33.0-33.9, adult
CPT/HCPCS: 36415; 36416; 51701; 71045; 74177; 80048; 80053; 81003; 81015; 82378; 83605; 85025; 85060; 87040; 87077; 87086; 87186; 88307; 88312; 88313; 88342; 90471; 90732; 93005; 96361; 96365; 96367; 96375; 96376; G0009; J0131; J0360; J0670; J0694; J0696; J1100; J1650; J1885; J2250; J2270; J2405; J2543; J2704; J3010; J3370; J3490; J7050; P9045; Q9966; S0028

== ENCOUNTER 2019-02-28 14:00 | Inpatient (IN) | payer BC ==
[2019-03-05 11:10] VITALS: BMI 31.8
[2019-03-06] MEDS ORDERED: Midazolam HCl 2 mg/2 ml Vial ONE (07:28)
[2019-03-06] MEDS ORDERED: Fentanyl 100 MCG/2 ML VIAL ONE ×5 (07:28→15:54)
[2019-03-06] MEDS ORDERED: cefOXitin 2 GM VIAL ONE ×3 (08:14→11:03)
[2019-03-06] MEDS ORDERED: Ketorolac Tromethamine 30 MG/ML VIAL ONE (08:14)
[2019-03-06] MEDS ORDERED: Sodium Chloride 0.9% 100 ML ONE (08:15)
[2019-03-06 08:28] LABS: Anion Gap 15 mmol/L (10-20); BUN (Urea Nitrogen) 13 mg/dL (8.4-25.7); Calc. Creatinine Clearance 148 mL/min (70-130); Calcium 9.3 mg/dL (7.8-10.44); Carbon Dioxide 17 mmol/L (22-29); Chloride 108 mmol/L (98-107); Estimated GFR-MDRD Greater than 90; Glucose 97 mg/dL (70-105); Potassium 5.3 mmol/L (3.5-5.1); Sodium 135 mmol/L (136-145)
[2019-03-06] MEDS ORDERED: Dexamethasone 4 mg/ml Vial ONE (08:34)
[2019-03-06] MEDS ORDERED: Lidocaine 2% w/Epinephrine 1:200K 20 ML VIAL ONE (08:50)
[2019-03-06] MEDS ORDERED: Lidocaine 1% w/Epinephrine 1:100K 20 ML VIAL ONE (08:51)
[2019-03-06] MEDS ORDERED: Promethazine HCl 25 MG/ML VIAL IM PRN ×2 (13:08→16:08)
[2019-03-06] MEDS ORDERED: Promethazine HCl 25 MG/ML VIAL SLOW IVP PRN (13:08)
[2019-03-06] MEDS ORDERED: Ondansetron HCl/PF 4 MG/2 ML Vial IVP PRN (13:08)
[2019-03-06] MEDS ORDERED: Bupivacaine HCl 0.5%/Epinephrine 1:200,000/PF 30 ml Vial ONE (14:15)
[2019-03-06] MEDS ORDERED: Lidocaine 1% PF 5 ML VIAL ONE (14:40)
[2019-03-06] MEDS ORDERED: PHENYLEPHRINE-NS 100 MCG/ML 10 ML SYRINGE ONE (14:40)
[2019-03-06] MEDS ORDERED: Rocuronium Bromide 10 MG/ML (10ML VIAL) ONE (14:40)
[2019-03-06] MEDS ORDERED: Dexamethasone 20 MG/5 ML VIAL ONE (14:40)
[2019-03-06] MEDS ORDERED: Ondansetron PF 4 MG/2 ML Vial ONE (14:40)
[2019-03-06] MEDS ORDERED: Glycopyrrolate 0.2 MG/ML 5 ML SYRINGE ONE (14:40)
[2019-03-06] MEDS ORDERED: PROPOFOL 200 MG/20 ML VIAL ONE (14:40)
[2019-03-06] MEDS ORDERED: Ondansetron PF 4 MG/2 ML Vial IVP PRN (16:08)
[2019-03-06] MEDS ORDERED: Morphine 4 MG/ML VIAL SLOW IVP PRN ×2 (16:08)
[2019-03-06] MEDS: Famotidine 20 MG TAB PO SCH ×2 (17:40→21:09)
[2019-03-06] MEDS: Famotidine/PF 20 mg/2ml Vial SLOW IVP SCH ×2 (17:40→21:10)
[2019-03-06] MEDS: Acetaminophen 1,000 MG in Premix Bag 1 BAG IVPB SCH ×2 (17:41→22:04)
[2019-03-06] MEDS: Ketorolac Tromethamine 30 MG/ML VIAL IVP SCH ×2 (17:41→22:04)
[2019-03-06] MEDS: D5 1/2 NS w/20 mEq KCL 1,000 ML IV SCH (17:46)
[2019-03-06] MEDS: Enoxaparin Sodium 40 MG/0.4 ML SYRINGE SC SCH (21:10)
[2019-03-07] MEDS: D5 1/2 NS w/20 mEq KCL 1,000 ML IV SCH ×3 (02:31→16:34)
[2019-03-07 05:12] LABS: #Lymphocytes 1.9 thou/uL (1.20-3.40); #Monocytes 0.6 thou/uL (0.11-0.59); #Neutrophils 13.5 thou/uL (1.40-6.50); %Basophils 0.1 % (0.0-1.0); %Lymphocytes 11.7 % (21.0-51.0); %Monocytes 3.6 % (0.0-10.0); %Neutrophils 84.6 % (42.0-75.0); Hemoglobin 15.4 g/dL (14.0-18.0); Mean Corpuscular HGB CONC 31.3 g/dL (32.0-36.0); Mean Corpuscular Hemoglobin 29.4 pg (27.0-31.0); Mean Platelet Volume 8.5 fL (7.4-10.4); Platelet Count 202 thou/uL (130-400); RBC Distribution Width 13.3 % (11.5-14.5); Red Blood Cell (RBC) Count 5.23 mill/uL (4.70-6.10); White Blood Cell (WBC) Count 15.9 thou/uL (4.8-10.8)
[2019-03-07] MEDS: Acetaminophen 1,000 MG in Premix Bag 1 BAG IVPB SCH ×2 (05:31→10:37)
[2019-03-07 05:32] LABS: Anion Gap 13 mmol/L (10-20); BUN (Urea Nitrogen) 14 mg/dL (8.4-25.7); Calc. Creatinine Clearance 153 mL/min (70-130); Calcium 8.9 mg/dL (7.8-10.44); Carbon Dioxide 19 mmol/L (22-29); Chloride 105 mmol/L (98-107); Estimated GFR-MDRD Greater than 90; Glucose 182 mg/dL (70-105); Potassium 4.4 mmol/L (3.5-5.1); Sodium 133 mmol/L (136-145)
[2019-03-07] MEDS: Ketorolac Tromethamine 30 MG/ML VIAL IVP SCH ×4 (05:32→22:34)
[2019-03-07] MEDS: Famotidine 20 MG TAB PO SCH ×2 (08:35→21:58)
[2019-03-07] MEDS: Famotidine/PF 20 mg/2ml Vial SLOW IVP SCH ×2 (08:35→21:51)
--- NOTE | 2019-03-07 08:38 | PRG ---
DATE OF SERVICE: 03/07/2019 SUBJECTIVE: Mr. Parsons is postoperative day #1 from colostomy reversal. He has no complaints. He notes appropriate left-sided abdominal pain at the site of his prior colostomy. He has tolerated clear liquids and has ambulated this morning. His urine catheter has been removed already this morning. OBJECTIVE: VITAL SIGNS: On examination, he is afebrile. Pulse is 86, blood pressure is 159/78. His urine output overnight was 750 mL. LUNGS: Clear to auscultation. CARDIAC: Regular rate and rhythm. ABDOMEN: Soft with hypoactive bowel sounds. Dressing is still intact over colostomy site. Drain was examined and there was serosanguineous fluid coming from this. There was about 20 mL out last night. This is within the prior large peristomal hernia defect that was closed at the time of the surgery. ASSESSMENT AND PLAN: The patient is doing well following the colostomy closure. He will continue clear liquids and ambulating today. Depending upon his progress, he maybe ready for discharge as early as tomorrow. Job ID: [id number]
[2019-03-07] MEDS ORDERED: HYDROcodone/Acetaminophen 7.5/325 mg Tablet PO PRN (15:00)
[2019-03-07] MEDS ORDERED: Acetaminophen 325 MG TAB PO PRN (15:00)
[2019-03-07] MEDS: Enoxaparin Sodium 40 MG/0.4 ML SYRINGE SC SCH (21:51)
[2019-03-07] MEDS: Metoprolol Tartrate 100 MG TAB PO SCH (21:51)
[2019-03-08] MEDS: D5 1/2 NS w/20 mEq KCL 1,000 ML IV SCH (03:40)
[2019-03-08] MEDS: Ketorolac Tromethamine 30 MG/ML VIAL IVP SCH ×3 (05:23→17:45)
[2019-03-08] MEDS: Famotidine 20 MG TAB PO SCH (08:01)
[2019-03-08] MEDS: Famotidine/PF 20 mg/2ml Vial SLOW IVP SCH (08:01)
[2019-03-08] MEDS: Metoprolol Tartrate 100 MG TAB PO SCH (08:01)
[2019-03-08] MEDS: hydrALAZINE 20 MG/ML VIAL SLOW IVP PRN ×2 (08:28→13:38)
[2019-03-08] MEDS ORDERED: cloNIDine 0.1 MG TAB PO SCH (09:30)
[2019-03-08] MEDS ORDERED: Furosemide 40 MG/4 ML VIAL ONE (11:08)
[2019-03-08] MEDS ORDERED: Furosemide 20 MG/2 ML VIAL SLOW IVP SCH (11:15)
[2019-03-08] MEDS ORDERED: hydrALAZINE 20 MG/ML VIAL SLOW IVP PRN (15:11)
[2019-03-08 15:53] VITALS: TEMP 98.2
[2019-03-08] MEDS ORDERED: Labetalol HCl 100 MG/20 ML VIAL SLOW IVP PRN (16:55)
[2019-03-08] MEDS ORDERED: cloNIDine 0.1 MG TAB PO PRN (16:56)
[2019-03-08] MEDS ORDERED: Amlodipine 10 MG TAB PO SCH (17:00)
--- NOTE | 2019-03-08 17:27 | CON ---
DATE OF CONSULTATION: 03/08/2019 PRIMARY CARE PROVIDER: Dr. Gary Melton. CHIEF COMPLAINT: Hypertensive urgency. HISTORY OF PRESENT ILLNESS: Mr. Parsons is a pleasant 54-year-old gentleman, who was seen at [facility] on March 08, 2019. In October 2018, he underwent exploratory laparotomy with open small bowel decompression, open colonic decompression, sigmoid colectomy with stapled rectal stump and colostomy creation for colorectal obstruction of uncertain etiology. Yesterday, he underwent reversal of the colostomy. He reports that he takes metoprolol 100 mg two times a day at home. Over the last few days, it appears that he may have missed a few doses of metoprolol. He was found to have significantly elevated blood pressures. Hospitalist Service was consulted for evaluation and management. He denies any chest pain. He reports he feels hungry. He denies any headache, nausea, or vomiting. He reports that pain at the surgical site is 3/10. He denies any lightheadedness. REVIEW OF SYSTEMS: All other systems reviewed and found to be negative. PAST MEDICAL HISTORY: Hypertension. SURGICAL HISTORY: As described above. FAMILY HISTORY: Pacemaker in his father. ALLERGIES: NO KNOWN DRUG ALLERGIES. CURRENT MEDICATIONS: Metoprolol tartrate 100 mg two times a day. SOCIAL HISTORY: Occasional cigar use, occasional alcohol use, no recreational drug use. PHYSICAL EXAMINATION: GENERAL: On examination, Mr. Parsons is awake and alert, not in acute distress. VITAL SIGNS: Blood pressure is 182/106, pulse 74, respiratory rate 18, and oxygen saturation 95% on room air. He is afebrile. He is obese, with a BMI of 31.9. EYES: No scleral icterus, no conjunctival pallor. ENT: Moist mucosal membranes, no oropharyngeal erythema or exudates. NECK: Supple, nontender, trachea is midline. RESPIRATORY: Accessory muscles of breathing are not active. Chest wall movements are symmetric bilaterally. LUNGS: Clear to auscultation without wheeze, rhonchi, or crepitations. CARDIOVASCULAR: S1 and S2 are heard, regular. ABDOMEN: Tessa over the left lower quadrant, drain present. Abdomen is soft, nontender, bowel sounds heard. NEUROLOGIC: Cranial nerves 2 through 12 are intact. MUSCULOSKELETAL: Power is 5/5 in all 4 extremities. SKIN: No rashes or subcutaneous nodules. LYMPHATIC: No cervical lymphadenopathy. PSYCHIATRIC: Normal mood, normal affect, the patient is oriented to person, place, and time. LABORATORY DATA: Mr. Parsons's labs and investigations were reviewed. He had mild hyponatremia today, with a sodium of 133. Creatinine was normal. He had leukocytosis with 15,900 white cells, of which 84.6% are neutrophils. Hemoglobin and platelet count were normal. ASSESSMENT AND PLAN: Mr. Parsons is a pleasant 54-year-old gentleman, who was seen at [facility] on March 08, 2019. His problem list includes: 1. Hypertensive urgency: Mr. Parsons has hypertensive urgency. He will be treated with intravenous antihypertensives as needed, including labetalol p.r.n. and hydralazine p.r.n. We will also start him on amlodipine to see if it helps with the blood pressure. This could be secondary to pain, however, it is less likely since the patient reports only a 3/10 rating on his pain. We will monitor vital signs and titrate antihypertensives as needed. 2. Hyponatremia: Mild, likely asymptomatic. 3. Leukocytosis: He had leukocytosis yesterday. There is no evidence of infection at this time. Many thanks for allowing me to participate in your patient's care. Please feel free to contact me with any questions or concerns. LEVEL OF RISK: Moderate. LEVEL OF COMPLEXITY: Moderate. Job ID: [id number]
[2019-03-08 18:09] VITALS: BP 188/109
[2019-03-09] MEDS ORDERED: Amlodipine 5 MG TAB PO SCH (09:00)
--- NOTE | 2019-03-09 10:27 | OP ---
DATE OF PROCEDURE: 03/06/2019 PREOPERATIVE DIAGNOSIS: Unnecessary/undesired colostomy. POSTOPERATIVE DIAGNOSIS: Unnecessary/undesired colostomy. OPERATION PERFORMED: Laparoscopic-assisted colostomy closure with splenic flexure mobilization. ANESTHESIA: General endotracheal. INDICATIONS: The patient is a 54-year-old male. Three months previously, I had performed an exploratory laparotomy with sigmoid colectomy and colostomy formation. He has done well in the interim. He recently had colonoscopy performed revealing no evidence of abnormality. He was taken to the operating room at this time for reversal. DESCRIPTION OF PROCEDURE: Informed consent was obtained. He was taken to the operating room, where general endotracheal anesthesia was obtained with the patient in supine position. The abdomen was prepped with ChloraPrep and draped in sterile fashion. The colostomy was sewed shut in a transverse fashion using a locking suture of 2-0 silk. A 5-mm supraumbilical incision was created, through which a Veress needle was passed into the peritoneal cavity and pneumoperitoneum was established using carbon dioxide up to pressure of 15 mmHg. A 5-mm trocar port was passed through the same incision and laparoscopic camera was passed through this port. Under direct vision, two separate 5-mm ports were placed in the right abdomen. Operation was continued using these three ports. There were adhesions to the anterior abdominal wall that all proved to be omentum. These were all carefully taken down using LigaSure. The area of the colostomy was identified. There was a large peristomal hernia. There was omentum adherent both inferiorly to the pelvis as well as up within the parastomal hernia. I first mobilized all contents out of the pelvis. There were small bowel adhesions, and these were carefully sharply lysed until the pelvis was clear. The omental adhesions were also lysed, and the omentum was reflected superiorly. I then turned my attention to the colostomy, and all omental adhesions up within the colostomy were also carefully taken down. Attention was returned to the pelvis. I was able to identify the Prolene sutures on the rectal stump. The EEA sizers were passed up through the anus to the tip of the rectal stump to help better identify this. There appeared to be no need for further dissection in this area as the area that was exposed appeared to be appropriate for anastomosis. Attention was then turned to the left colon. I incised the white line of Toldt in an ascending fashion up to the splenic flexure. I then mobilized the distal transverse colon and the left colon to achieve appropriate mobility. Attention was then turned externally. I created a transverse elliptical incision around the closed colostomy site. Dissection was carried through skin and subcutaneous tissue. Dissection was carried down next to the colon, freeing it from all muscular adhesions until it was completely mobilized. I then dropped this down into the abdomen via established pneumoperitoneum. I ensured that this would easily reach down to the pelvis. I created an enterotomy in the colon and placed the EEA sizers through this. I then obtained a 31-mm [employer] System[employer] stapler and passed the anvil of the stapler through the colotomy couple of centimeters proximally, where I brought it out antimesenteric. The colostomy with the enterotomy was then excluded with a final firing of the IGNACIO 75 stapler. Gloves were changed. Instruments were changed, and the post of the anvil was prepped with Betadine. I then placed a 3-0 Prolene pursestring suture around the anvil base. From below, the 31-mm EEA stapler was advanced through the anus up to the rectal stump, and the spike was advanced through the rectal stump. Unfortunately, it did not appear that the spike could be completely opened and visualized. I decided to investigate this with my hand in the abdomen. I placed the GelPort through the colostomy opening in the left lower quadrant and passed my left hand into the abdomen. With this, I was able to ensure that there was an appropriate amount of the spike protruding through the rectal stump. I then mated the stapler to the anvil in the left colon. The two ends of the bowel were approximated and after ensuring the appropriate torque range of the stapler, the staple was fired and removed, the donuts were inspected and found to be of excellent quality. The anastomosis was inspected to make sure it was airtight by insufflating the air while under water and there was no air leak. All irrigant from within the abdomen was aspirated. All ports and instruments were removed under direct vision. Pneumoperitoneum was carefully evacuated. The large defect in the fascia, which had constituted the hernia was closed in a single layer with a running suture of #1 PDS. There was a large space within this tissue. I then placed a 10-[place] round fluted drain within the wound and brought the drain out laterally and superiorly and was secured with a 3-0 nylon suture. The remainder of the wound was closed in layers with 3-0 Vicryl and skin sonja. Laparoscopic incision sites were closed with 4-0 Monocryl subcuticular suture. Dermabond was placed externally to this. There were no complications. The patient tolerated the procedure well and was taken to recovery room in stable condition. Job ID: [id number]
== END 2019-03-08 18:56 | disposition home or self-care (01) | DRG 330 ==
LOC: SURG A 03-06 06:53
PROVIDERS: ADMIT Specialist; ATTEND Specialist
PROC: 0DBL4ZZ Excision of Transverse Colon, Percutaneous Endoscopic Approach (ICD-10-PCS; principal; 2019-03-06)
PROC: 0WQF4ZZ Repair Abdominal Wall, Percutaneous Endoscopic Approach (ICD-10-PCS; 2019-03-06)
DX: K43.5 Parastomal hernia without obstruction or gangrene (principal); E87.1 Hypo-osmolality and hyponatremia; I16.0 Hypertensive urgency; I10 Essential (primary) hypertension; F17.290 Nicotine dependence, other tobacco product, uncomplicated; Z79.899 Other long term (current) drug therapy
CPT/HCPCS: 36415; 36416; 80048; 83036; 85025; 88304; J0131; J0360; J0670; J0694; J1100; J1650; J1885; J1940; J2001; J2250; J2405; J2704; J3010; J3490; S0028

== ENCOUNTER 2019-10-04 13:17 | Emergency (ER) | payer BC ==
[2019-10-04 14:28] LABS: #Eosinphils 0.2 thou/uL (0.0-0.7); #Lymphocytes 2.3 thou/uL (1.20-3.40); #Monocytes 0.8 thou/uL (0.11-0.59); #Neutrophils 8.7 thou/uL (1.40-6.50); %Basophils 0.4 % (0.0-1.0); %Eosinophils 1.4 % (0.0-10.0); %Lymphocytes 19.3 % (21.0-51.0); %Monocytes 6.6 % (0.0-10.0); %Neutrophils 72.3 % (42.0-75.0); Hemoglobin 16.4 g/dL (14.0-18.0); Mean Corpuscular Hemoglobin 32.1 pg (27.0-31.0); Mean Corpuscular Volume 94.4 fL (78.0-98.0); Mean Platelet Volume 7.9 fL (7.4-10.4); Platelet Count 210 thou/uL (130-400); RBC Distribution Width 11.8 % (11.5-14.5); Red Blood Cell (RBC) Count 5.11 mill/uL (4.70-6.10)
[2019-10-04 14:42] LABS: Bacteria/HPF 3+ HPF (None Seen); Bilirubin Negative (Negative); Blood, Urine Negative (Negative); Clarity Turbid (Clear); Glucose, Urine (Dipstick) Normal (Negative); Leukocyte 500 Leu/uL (Negative); Nitrite 2+ (Negative); Protein, Urine (Dipstick) 10 mg/dL (Neg-Trace); RBC/HPF 0-3 HPF (0-3); Squamous Epithelial 0-3 HPF (0-3); Urobilinogen Normal mg/dL (Less than 2); WBC/HPF Greater than 50 HPF (0-3)
[2019-10-04 14:51] LABS: ALT (SGPT) 25 U/L (8-55); AST (SGOT) 15 U/L (5-34); Albumin 4.2 g/dL (3.5-5.0); Alkaline Phosphatase 65 U/L (40-110); Anion Gap 14 mmol/L (10-20); BUN (Urea Nitrogen) 13 mg/dL (8.4-25.7); Bilirubin, Total 0.6 mg/dL (0.2-1.2); Calc. Creatinine Clearance 0 mL/min (70-130); Calcium 9.7 mg/dL (7.8-10.44); Carbon Dioxide 24 mmol/L (22-29); Chloride 100 mmol/L (98-107); Estimated GFR-MDRD 76; Globulin 2.8 g/dL (2.4-3.5); Glucose 149 mg/dL (70-105); Lipase 16 U/L (8-78); Potassium 4.5 mmol/L (3.5-5.1); Sodium 133 mmol/L (136-145)
[2019-10-04] MEDS ORDERED: Iopamidol-370 76% 500 ML 1 ML ONE (15:01)
--- NOTE | 2019-10-04 18:32 | CT ---
EXAM: CT ABDOMEN AND PELVIS HISTORY: Right lower quadrant wound COMPARISON: 11/28/2018 Procedure: Multiple contiguous axial images were obtained and a CT of the abdomen and pelvis with IV contrast. C oronal reformats were performed. FINDINGS: Lower Chest: within normal limits. Vessels: Normal caliber aorta Heart: Normal heart size. There is evidence of pericardial fluid Abdomen: Portal vein:Patent Gallbladder: No calcified gallstones. Normal caliber wall. Liver: within normal limits. Pancreas: within normal limits. Spleen: within normal limits. Adrenals: Redemonstration of bilateral adrenal nodules. Left adrenal nodule has increased in size, cu rrently measuring 1.4 x 2.3 cm involving the lateral limb. A second left adrenal nodule is stable measuring 2.0 x 2.5 cm. Right adrenal nodule stable measuring 2.6 x 2.1 cm. Kidneys: Symmetric enhancement. No obstructive uropathy. Peritoneum: No ascites or free air, no fluid collection. Bowel: Limited evaluation due to the lack of oral contrast administration. No evidence of bowel obstr uction. Ileocecal junction is unremarkable. Normal caliber appendix. Scattered fecal material in a nondistended, nondilated colon. Redemonstration of an anastomosis at the level of the distal colon. Mesentery and Retroperitoneum: No enlarged mesenteric or retroperitoneal lymph nodes. Abdominal Wall: There is evidence of postsurgical changes with stranding of the subcutaneous fat. The re is a 3.1 x 2.3 cm hypodensity in the anterior right abdominal wall, involving the subcutaneous fat with a component at the level of the dermis. A small infected fluid collection is suspected. Ther e is induration of the adjacent fat and thickening of the overlying skin. Pelvis: Reproductive Organs: Reproductive organs are unremarkable. Pelvis: No mass, free air or free fluid. Enlarged right external iliac lymph node measuring 1.4 x 1.9 cm. Enlarged bilateral inguinal lymph nodes. Curtain Supervisor left inguinal lymph node measures 2.3 x 1.6 cm. Bladder: within normal limits. Bones: within normal limits. IMPRESSION: 1. Induration and inflammatory changes along the ventral abdominal wall. There is an abscess in the a nterior right lower abdominal wall as described above. 2. Enlarging left adrenal nodule. Bilateral adrenal nodules are redemonstrated and are incompletely e valuated. Nonemergent adrenal mass protocol CT or abdomen MRI is recommended. Transcribed Date/Time: 10/04/2019 6:35 PM
== END 2019-10-04 19:10 | disposition home or self-care (01) ==
LOC: ERS 13:17
DX: N39.0 Urinary tract infection, site not specified (principal); L02.211 Cutaneous abscess of abdominal wall; I10 Essential (primary) hypertension; G43.909 Migraine, unspecified, not intractable, without status migrainosus; F17.290 Nicotine dependence, other tobacco product, uncomplicated; Z79.899 Other long term (current) drug therapy
CPT/HCPCS: 36415; 74177; 80053; 81003; 81015; 83690; 85025; Q9967

== ENCOUNTER 2022-06-06 08:15 | Emergency (ER) | payer BC ==
[2022-06-06 09:10] LABS: #Basophils 0.1 thou/uL (0.0-0.2); #Eosinphils 0.2 thou/uL (0.0-0.7); #Lymphocytes 2.7 thou/uL (1.20-3.40); #Monocytes 0.6 thou/uL (0.11-0.59); #Neutrophils 8.8 thou/uL (1.40-6.50); %Basophils 0.5 % (0.0-1.0); %Eosinophils 1.5 % (0.0-10.0); %Lymphocytes 21.9 % (21.0-51.0); %Monocytes 4.5 % (0.0-10.0); %Neutrophils 71.6 % (42.0-75.0); Mean Corpuscular Hemoglobin 31.7 pg (27.0-31.0); Mean Corpuscular Volume 93.4 fL (78.0-98.0); Mean Platelet Volume 8.6 fL (7.4-10.4); Platelet Count 161 thou/uL (130-400); RBC Distribution Width 12.5 % (11.5-14.5); Red Blood Cell (RBC) Count 5.35 mill/uL (4.70-6.10); White Blood Cell (WBC) Count 12.3 thou/uL (4.8-10.8)
[2022-06-06 09:30] LABS: ALT (SGPT) 33 U/L (8-55); AST (SGOT) 24 U/L (5-34); Albumin 4.3 g/dL (3.5-5.0); Alkaline Phosphatase 64 U/L (40-110); Anion Gap 16 mmol/L (10-20); BUN (Urea Nitrogen) 17 mg/dL (8.4-25.7); Bilirubin, Total 0.4 mg/dL (0.2-1.2); Calc. Creatinine Clearance 0 mL/min (70-130); Calcium 9.3 mg/dL (7.8-10.44); Carbon Dioxide 23 mmol/L (22-29); Chloride 102 mmol/L (98-107); Estimated GFR 61; Globulin 2.5 g/dL (2.4-3.5); Glucose 166 mg/dL (70-105); Potassium 4.9 mmol/L (3.5-5.1); Protein, Total 6.8 g/dL (6.0-8.3); Sodium 136 mmol/L (136-145)
[2022-06-06 11:31] LABS: Bilirubin Negative (Negative); Blood, Urine Negative (Negative); Clarity Clear (Clear); Glucose, Urine (Dipstick) 100 mg/dL (Negative); Ketone, Urine Negative (Negative); Leukocyte Negative Leu/uL (Negative); Nitrite Negative (Negative); Protein, Urine (Dipstick) Negative (Neg-Trace); Specific Gravity, Urine 1.013 (1.002-1.036); Urobilinogen Normal mg/dL (Less than 2); pH, Urine 6.5 (5.0-9.0)
[2022-06-06] MEDS ORDERED: predniSONE 20 MG TAB ONE (12:26)
== END 2022-06-06 12:04 | disposition home or self-care (01) ==
LOC: ERS 08:15
DX: J44.9 Chronic obstructive pulmonary disease, unspecified (principal); R04.2 Hemoptysis; I10 Essential (primary) hypertension; F17.290 Nicotine dependence, other tobacco product, uncomplicated; Z79.899 Other long term (current) drug therapy
CPT/HCPCS: 36415; 71045; 80053; 81003; 84484; 85025; 85379; 93005; J7512